=== PATIENT | female | born 1960 | race Caucasian/White ===

== ENCOUNTER → 2020-01-31 | Outpatient (CLI) | payer OTHER ==
[~2020-01-31] VITALS: Ht 162.6 cm; Wt 92.3 kg
[~2020-01-31] MED LIST: LIDOCAINE 1% INJ 20 ML 20 ML VIAL INJ ONE; LIDOCAINE 1% INJ 20 ML 20 ML VIAL ONE
--- NOTE | 2020-01-31 12:29 | Diagnostic Imaging Report ---
INDICATION: Thyroid nodules. Patient presents for biopsy. TECHNIQUE: The patient was brought to the procedure room and placed on the table in the supine position. Ultrasound imaging over the neck was performed to evaluate for an appropriate entry site. The neck was then prepped and draped in the usual sterile fashion. A small amount of 1% lidocaine was utilized for local anesthesia. A total of four passes was made into the dominant solid mass in the left lobe of the thyroid utilizing 25-gauge needles and fine-needle aspiration technique. A single pass was made with a Rotex needle and a Rotex biopsy was performed. Next, a total of 4 passes was made into the dominant solid nodule near the junction of the right lobe of the thyroid and isthmus utilizing 25-gauge needles and fine-needle aspiration technique. A solitary pass was made through the nodule utilizing a Rotex needle and a Rotex biopsy was performed. The patient tolerated the procedure well and left the Department in stable condition. IMPRESSION: Successful ultrasound-guided fine-needle aspiration and Rotex biopsies of the left lobe thyroid nodule as well as isthmus dominant nodule. Dictated by: Dictated on workstation # [id number]
== END ==
LOC: RAD 09:00
PROVIDERS: ATTEND Nurse Practitioner Family
DX: E04.1 Nontoxic single thyroid nodule (principal)

== ENCOUNTER 2021-03-15 05:36 | Outpatient (CLI) | payer OTHER ==
[~2021-03-15] VITALS: Ht 162.6 cm; Wt 110.0 kg
[2021-03-15] MEDS ORDERED: PAMI30VI8 SQ (15:56)
[2021-03-15] MEDS ORDERED: ATOR80TA76 PO (15:56)
[2021-03-15] MEDS ORDERED: LISI20TA26 PO (15:56)
[2021-03-15] MEDS ORDERED: GABA300S2 PO (15:56)
[2021-03-15] MEDS ORDERED: NAPR-1071 PO (15:56)
[2021-03-15] MEDS ORDERED: AMIT50TA3 PO (15:56)
[2021-03-15] MEDS ORDERED: LEVO-130 PO (15:56)
[2021-03-15] MEDS ORDERED: VENL150C PO (15:56)
[2021-03-15] MEDS ORDERED: HYOS-20 PO (15:56)
[2021-03-15] MEDS ORDERED: OMEP40CA6 PO (15:56)
== END 2021-03-15 16:41 | disposition home or self-care (01) ==
LOC: PREOP 05:36
PROVIDERS: ATTEND Otolaryngology Otolaryngology/Facial Plastic Surgery
DX: Z01.818 Encounter for other preprocedural examination (principal)

== ENCOUNTER 2021-03-22 07:57 | Day surgery (SDC) | payer OTHER ==
[~2021-03-22] VITALS: Ht 162.6 cm; Wt 110.0 kg
[2021-03-22] VITALS (11 sets, daily range): BP systolic 93–160; BP diastolic 58–104
[~2021-03-22 07:57] MED LIST changes: +AMIT50TA3 PO; +ATOR80TA76 PO; +GABA300S2 PO; +HYOS-20 PO; +LEVO-130 PO; -LIDOCAINE 1% INJ 20 ML 20 ML VIAL INJ ONE; -LIDOCAINE 1% INJ 20 ML 20 ML VIAL ONE; +LISI20TA26 PO; +NAPR-1071 PO; +OMEP40CA6 PO; +PAMI30VI8 SQ; +VENL150C PO
--- OUTSIDE RECORDS SUMMARY | 2021-03-22 08:00 | XMS REPORT ---
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 02/07/2015 8:30 AM Fracture 2nd Metatarsal left foot 01/30/2015 9:00 AM Medications Active Name Start Date Estimated Completion Date SIG Co mments pioglitazone 30 mg oral tablet 11/30/2014 t edison 1 tablet (30 mg) by oral route once daily lisinopril-hydrochlorothiazide 20-12.5 mg oral tablet 07/07/2015 take 1 tablet by oral route once daily amitriptyline 25 mg oral tablet take 1 tablet (25 mg) by oral route once daily at bedtime enalapril maleate 10 mg oral tablet take 1 tablet (10 mg) by oral route once daily atorvastatin 80 mg oral tablet 11/02/2015 TAKE ONE T ABLET BY MOUTH ONCE DAILY lisinopril 20 mg oral tablet take 1 table t (20 mg) by oral route once daily hyoscyamine sulfate 0.125 mg oral tablet 01/29/2019 TAKE 1 TABLET BY MOUTH EVERY 6 HOURS methimazole 10 mg oral tablet take 2 tabl ets by oral route daily Synjardy XR 25-1,000 mg oral tablet, IR - ER, biphasic 24hr take 1 tablet by oral route once daily in the morning with a meal venlafaxine 150 mg oral capsule,extended release 24hr take 1 capsule (150 mg) by oral route once daily propranolol 10 mg oral tablet ta ke 1 tablet by oral route 3 times a day as needed levothyroxine 100 mcg oral tablet take 1 tablet (100 mcg) by oral route once daily Tums 300 mg (750 mg) oral tablet,chewable chew 3 tablets by oral route 2 times a day Humalog U-100 Insulin 100 unit/mL subcutaneous cartridge inject by subcutaneous route per prescriber's instructions. Insulin dosing requires individualization. for 1 day amitriptyline oral tablet 50 mg 10/16/2020 10/11/2021 take 1 tablet (50 mg) by oral route once daily at bedtime for 30 days Euthyrox 100 mcg oral tablet 02/26/2021 02/21/2022 Felicita e 1 tablet by mouth once daily Name Start Date Expiration Date SIG Comments Zocor 40 mg oral tablet 12/19/2009 03/19/2010 take 1 t ablet (40 mg) by oral route once daily in the evening for 30 days metformin 500 mg oral tablet 12/20/2009 06/18/2010 felicita e 1 tablet (500 mg) by oral route 2 times a day for 30 days Cipro 500 mg oral tablet 01/02/2015 01/09/2015 take 1 tablet (500 mg) by oral route every 12 hours for 7 days Jardiance 10 mg oral tablet 01/18/2015 07/17/2015 take 1 tablet (10 mg) by oral route once daily in the morning for 30 days Lipitor 40 mg oral tablet 02/20/2015 take 1 tablet (40 mg) by oral route once daily at bedtime for 30 days amitriptyline 25 mg oral tablet take 1 tablet (25 mg) by oral route once daily at bedtime omeprazole 40 mg oral capsule,delayed release(DR/EC) take 1 capsule (40 mg) by oral route once daily atorvastatin 40 mg oral tablet t edison 1 tablet (40 mg) by oral route once daily diphenoxylate-atropine 2.5-0.025 mg oral tablet 03/27/2015 take 2 tablets (5 mg) by oral route 3 times per day as needed Zofran (as hydrochloride) 8 mg oral tablet 03/27/2015 take 1 tablet (8 mg) by oral route every 8 hours Promethazine Topical 12.5 mg/0.1 ml 03/27/2015 Apply 0.1 ml to wrist and rub in every 4 hours as needed for nausea Dexilant 60 mg oral capsule,biphase delayed releas take 1 capsule (60 mg) by oral route once daily Allergy 25 mg oral tablet equate allergy. 1 tablet daily Ceftin 500 mg oral tablet take 1 tablet (500 mg) by oral route every 12 hours [place] 10-325 mg oral tablet take 1 tablet by oral route every 6 hours as needed for pain Transderm-Scop 1.5 mg (1 mg over 3 days) transdermal patch 3 day apply 1 patch by transdermal route to the hairless area behind 1 ear at least 4 hr before effect is required; reapply every 3 days as needed Lipitor 80 mg oral tablet 07/11/2015 take 1 tablet (80 mg) by oral route once daily omeprazole 40 mg oral capsule,delayed release(DR/EC) take 1 capsule (40 mg) by oral route once daily before a meal lisinopril-hydrochlorothiazide 20-12.5 mg oral tablet 09/26/2015 take 1 tablet by oral route once daily Zithromax Z-Ross 250 mg oral tablet 12/25/2015 12/30/2015 take 2 tablets (500 mg) by oral route once daily for 1 day then 1 tablet (250 mg) by oral route once daily for 4 days Zyrtec-D 5-120 mg oral tablet extended release 12 hr 12/25/2015 take 1 tablet by oral route every 12 hours Humalog 100 unit/mL subcutaneous solution 12/25/2015 inject by subcutaneous route 6 units before each meal Levemir 100 unit/mL subcutaneous solution 12/25/2015 inject by subcutaneous route 25 units at bedtime enalapril maleate 10 mg oral tablet 01/30/2016 TAKE ONE TABLET BY MOUTH ONCE DAILY pioglitazone 30 mg oral tablet 01/30/2016 TAKE ONE T ABLET BY MOUTH ONCE DAILY Augmentin 875-125 mg oral tablet take 1 t ablet by oral route every 12 hours Percocet 10-325 mg oral tablet t edison 1 tablet by oral route every 4 hours as needed for pain Dyazide 37.5-25 mg oral capsule take 1 capsule by oral route once daily as needed Invokana 100 mg oral tablet take 1 tablet (100 mg) by oral route once daily before the first meal of the day Dominik Duksear 300 unit/mL (1.5 mL) subcutaneous insulin pen inject by subcutaneous route per prescriber's instructions. Insulin dosing requires individualization. glimepiride 2 mg oral tablet take 1 table t (2 mg) by oral route once daily Bydureon 2 mg subcutaneous suspension,extended rel recon inject 2 mg once by subcutaneous route every 7 days metoclopramide HCl 10 mg oral tablet take 1 tablet (10 mg) by oral route 4 times per day 30 minutes before meals and at bedtime escitalopram oxalate 20 mg oral tablet take 1 tablet (20 mg) by oral route once daily diclofenac sodium 1 % topical gel 07/08/2017 10/06/2017 apply 2 gram to the affected area(s) by topical route 4 times per day for 30 days glimepiride 2 mg oral tablet take 1 table t (2 mg) by oral route twice daily Levsin 0.125 mg oral tablet take 1 tablet (0.125 mg) by oral route 4 times per day tramadol 50 mg oral tablet take 1 tablet (50 mg) by oral route every 4-6 hours as needed ondansetron 8 mg oral tablet,disintegrating dissolve 1 tablet by oral route every 8 hours as needed naproxen 500 mg oral tablet 02/28/2020 06/27/2020 Take 1 tablet by mouth twice daily Neurontin oral capsule 300 mg 08/29/2020 09/28/2020 ta ke 1 capsule (300 mg) by oral route 3 times per day for 30 days tramadol oral tablet 50 mg 08/29/2020 11/27/2020 take 1 tablet (50 mg) by oral route every 6 hours as needed for 90 days Voltaren topical gel 1 % 08/29/2020 09/28/2020 Apply to affecte d area BID. Lidoderm topical adhesive patch,medicated 5 % 08/29/202009/28/2020 apply 1 patch by transdermal route once daily (May wear up to 12hours.) for 30 days naproxen oral tablet 500 mg 08/29/2020 09/28/2020 take 1 tablet (500 mg) by oral route 2 times per day with food for 30 days Discontinued Name Start Date Discontinued Date SIG Comments enalapril maleate 10 mg oral tablet 01/18/2015 07/07/2015 take 1 tablet (10 mg) by oral route once daily for 90 days Fish Oil oral 05/21/2017 multivitamin oral tablet 05/21/2017 Vesicare 10 mg oral tablet 02/14/2015 03/27/2015 take 1 tablet (10 mg) by oral route once daily for 30 days metoclopramide HCl 10 mg oral tablet 05/21/2017 take 1 tablet (10 mg) by oral route 4 times per day 30 minutes before meals and at bedtime triamterene-hydrochlorothiazid 37.5-25 mg oral capsule 07/08/2017 take 1 capsule by oral route daily as needed Zyrtec 10 mg oral tablet 05/21/2017 take 1 tablet (10 mg) by oral route once daily Suprep Bowel Prep Kit 17.5-3.13-1.6 gram oral recon soln 05/07/19 18 05/21/2017 take as directed Levemir FlexTouch U-100 Insuln 100 unit/mL (3 mL) subcutaneo us insulin pen 08/29/2020 34 units BID Novolog U-100 Insulin aspart 100 unit/mL subcutaneous solution 08/29/2020 inject by subcutaneous route per prescriber's instructions. Insulin dosing requires individualization. gabapentin 300 mg capsule 08/29/2020 1 tab q HS Problem List Description Status Onset Hyperlipidemia Active Seasonal Allergies Active GERD (gastroesophageal reflux disease) Active 1 04/09/2014 Diverticulitis large intestine Active 6 Wound dehiscence Active 05/15/2015 Hypertension Active 07/07/2015 Left sided abdominal pain Active 04/23/2017 Nausea Active 05/07/2017 Constipation Active 05/07/2017 Diabetes type 2, uncontrolled Active 01/08/2018 Gas bloat syndrome Active 01/08/2018 DJD (degenerative joint disease) Active 018 Lower abdominal pain Active 01/21/2018 Fibromyalgia Active 01/08/2018 Vital Signs Date Time BP-Sys(mm[Hg] BP-Britni(mm[Hg]) HR(bpm) RR(rpm) Temp WT HT HC BMI BSA BMI Percentile O2 Sat(%) 08/29/2020 4:14:00 PM 131 mm[Hg] 85 mm[Hg] 98 {beats}/min 97.2 F 232 lbs 64 in 39.8223 kg/m2 2.1799 m2 02/15/2020 9:21:00 AM 139 mm[Hg] 84 mm[Hg] 84 {beats}/min 20 rpm 96.6 F 203 lbs 64 in 34.84 kg/m2 2.04 m2 02/17/2018 8:42:00 AM 131 mm[Hg] 73 mm[Hg] 83 {beats}/min 20 rpm 96.9 F 224 lbs 64 in 38.4491 kg/m2 2.142 m2 01/21/2018 8:54:00 AM 141 mm[Hg] 75 mm[Hg] 81 {beats}/min 20 rpm 97.2 F 224 lbs 64 in 38.45 kg/m2 2.14 m2 01/07/2018 11:17:00 AM 118 mm[Hg] 71 mm[Hg] 84 {beats}/min 20 rpm 97.4 F 218 lbs 64 in 37.4192 kg/m2 2.1131 m2 08/07/2017 7:58:00 AM 118 mm[Hg] 68 mm[Hg] 87 {beats}/min 97.7 F 222.125 lbs 64 in 38.13 kg/m2 2.13 m2 96 % 07/08/2017 9:44:00 AM 120 mm[Hg] 60 mm[Hg] 80 {beats}/min 98.7 F 22 0.062 lbs 97 % 06/09/2017 9:52:00 AM 130 mm[Hg] 70 mm[Hg] 80 {beats}/min 96.9 F 21 5 lbs 64 in 36.90 kg/m2 2.10 m2 96 % 05/21/2017 7:56:00 AM 118 mm[Hg] 82 mm[Hg] 82 {beats}/min 97.6 F 214.125 lbs 64 in 36.7541 kg/m2 2.0942 m2 97 % 05/07/2017 8:54:00 AM 118 mm[Hg] 82 mm[Hg] 89 {beats}/min 20 rpm 96.9 F 209.5 lbs 64 in 35.96 kg/m2 2.07 m2 04/23/2017 9:04:00 AM 136 mm[Hg] 80 mm[Hg] 86 {beats}/min 20 rpm 96.9 F 207 lbs 64 in 35.5311 kg/m2 2.0591 m2 10/15/2016 8:46:00 AM 141 mm[Hg] 84 mm[Hg] 84 {beats}/min 20 rpm 19 1 lbs 64 in 32.78 kg/m2 1.98 m2 09/03/2016 9:03:00 AM 131 mm[Hg] 65 mm[Hg] 81 {beats}/min 20 rpm 97.5 F 186 lbs 64 in 31.9265 kg/m2 1.9518 m2 08/28/2016 10:01:00 AM 136 mm[Hg] 80 mm[Hg] 82 {beats}/min 18 rpm 97.6 F 183 lbs 64 in 31.41 kg/m2 1.94 m2 12/25/2015 9:32:00 AM 132 mm[Hg] 74 mm[Hg] 82 {beats}/min 18 rpm 98.1 F 201 lbs 64 in 34.5012 kg/m2 2.029 m2 98 % 08/15/2015 9:05:00 AM 150 mm[Hg] 96 mm[Hg] 81 {beats}/min 16 rpm 96.9 F 201 lbs 64 in 34.50 kg/m2 2.03 m2 97 % 07/07/2015 8:59:00 AM 158 mm[Hg] 108 mm[Hg] 73 {beats}/min 18 rpm 98.2 F 197 lbs 64 in 33.8146 kg/m2 2.0087 m2 97 % 05/26/2015 8:53:00 AM 148 mm[Hg] 87 mm[Hg] 82 {beats}/min 18 rpm 97.2 F 200 lbs 64 in 34.33 kg/m2 2.02 m2 05/25/2015 4:44:00 PM 118 mm[Hg] 73 mm[Hg] 75 {beats}/min 20 rpm 97.4 F 201 lbs 64 in 34.5012 kg/m2 2.029 m2 05/24/2015 8:44:00 AM 118 mm[Hg] 73 mm[Hg] 75 {beats}/min 20 rpm 97.5 F 199 lbs 64 in 34.16 kg/m2 2.02 m2 05/23/2015 9:07:00 AM 137 mm[Hg] 81 mm[Hg] 81 {beats}/min 16 rpm 96.8 F 200 lbs 64 in 34.3296 kg/m2 2.024 m2 05/22/2015 1:53:00 PM 132 mm[Hg] 85 mm[Hg] 91 {beats}/min 20 rpm 96.6 F 200.5 lbs 05/17/2015 10:16:00 AM 129 mm[Hg] 67 mm[Hg] 79 {beats}/min 20 rpm 97.6 F 202 lbs 64 in 34.6729 kg/m2 2.0341 m2 05/16/2015 11:59:00 AM 118 mm[Hg] 69 mm[Hg] 82 {beats}/min 18 rpm 97 F 202 lbs 64 in 34.67 kg/m2 2.03 m2 05/15/2015 3:08:00 PM 129 mm[Hg] 69 mm[Hg] 78 {beats}/min 20 rpm 97 F 202 lbs 64 in 34.6729 kg/m2 2.0341 m2 05/12/2015 11:15:00 AM 123 mm[Hg] 62 mm[Hg] 77 {beats}/min 20 rpm 97.4 F 205 lbs 05/11/2015 2:12:00 PM 121 mm[Hg] 72 mm[Hg] 89 {beats}/min 20 rpm 96.8 F 202 lbs 05/10/2015 8:45:00 AM 122 mm[Hg] 75 mm[Hg] 76 {beats}/min 16 rpm 97.4 F 205.5 lbs 64 in 35.2736 kg/m2 2.0516 m2 05/09/2015 10:15:00 AM 110 mm[Hg] 74 mm[Hg] 88 {beats}/min 20 rpm 97.7 F 203 lbs 64 in 34.84 kg/m2 2.04 m2 04/19/2015 8:43:00 AM 127 mm[Hg] 76 mm[Hg] 78 {beats}/min 20 rpm 97 F 219 lbs 64 in 37.5909 kg/m2 2.1179 m2 03/31/2015 10:32:00 AM 103 mm[Hg] 74 mm[Hg] 81 {beats}/min 16 rpm 97.4 F 217 lbs 64 in 37.25 kg/m2 2.11 m2 03/27/2015 2:24:00 PM 136 mm[Hg] 88 mm[Hg] 92 {beats}/min 22 rpm 98.2 F 213 lbs 64 in 36.561 kg/m2 2.0887 m2 98 % 02/07/2015 9:20:00 AM 125 mm[Hg] 85 mm[Hg] 70 {beats}/min 20 rpm 96.8 F 210 lbs 64 in 36.05 kg/m2 2.07 m2 01/26/2015 3:53:00 PM 132 mm[Hg] 76 mm[Hg] 85 {beats}/min 20 rpm 98.5 F 218 lbs 63.5 in 38.0108 kg/m2 2.1048 m2 99 % 01/13/2015 1:44:00 PM 75 {beats}/min 20 rpm 98.2 F 213.8 lbs 98 % 01/02/2015 9:52:00 AM 109 mm[Hg] 71 mm[Hg] 90 {beats}/min 20 rpm 98.1 F 207 lbs 97 % 11/29/2014 1:35:00 PM 138 mm[Hg] 88 mm[Hg] 104 {beats}/min 20 rpm 98 F 225 lbs 63.5 in 39.2314 kg/m2 2.1383 m2 98 % 03/09/2010 1:10:00 PM 176 mm[Hg] 98 mm[Hg] 80 {beats}/min 20 rpm 98.5 F 226.125 lbs 09/21/2009 9:41:00 AM 136 mm[Hg] 90 mm[Hg] 68 {beats}/min 16 rpm 97.6 F 220.25 lbs 63.5 in 38.4031 kg/m2 2.1157 m2 Social History Name Description Comments Tobacco Former smoker 12 years total denies alcohol use Unemployed Child History of Procedures Date Ordered Description Order Status 01/02/2015 10:14 AM URINALYSIS AUTO W/O SCOPE Reviewed 01/02/2015 12:00 AM URINE CULTURE/COLONY COUNT Reviewed 01/13/2015 12:00 AM COMPLETE CBC W/AUTO DIFF WBC Reviewed 01/13/2015 12:00 AM COMPREHEN METABOLIC PANEL Reviewed 01/13/2015 12:00 AM URNLS DIP STICK/TABLET RGNT AUTO W/O VIVIENNE ROSCOPY Reviewed 01/13/2015 12:[address] ABD & PELVIS W/O CONTRAST Reviewed 01/26/2015 12:00 AM General Surgery Consultation Reviewed 01/26/2015 12:00 AM Orthopedic Consultation Reviewed 02/07/2015 12:00 AM DIAGNOSTIC COLONOSCOPY Reviewed 03/31/2015 12:00 AM COMPLETE CBC W/AUTO DIFF WBC Reviewed 03/31/2015 12:00 AM COMPREHEN METABOLIC PANEL Reviewed 03/31/2015 12:00 AM MICROSCOPIC EXAM OF URINE Reviewed 03/27/2015 12:00 AM General Surgery Consultation Reviewed 04/19/2015 12:00 AM ELECTROCARDIOGRAM COMPLETE Reviewed 04/19/2015 12:00 AM CHEST X-RAY 2VW FRONTAL&LATL Reviewed 07/07/2015 12:00 AM METABOLIC PANEL TOTAL CA Reviewed 07/07/2015 12:00 AM LIPID PANEL Reviewed 07/07/2015 12:00 AM GLYCOSYLATED HEMOGLOBIN TEST Reviewed 07/07/2015 12:00 AM ALBUMIN URINE MICROALBUMIN QUANTIATIVE R eviewed 07/07/2015 12:00 AM ELECTROCARDIOGRAM COMPLETE Reviewed 07/07/2015 12:00 AM ASSAY OF TROPONIN QUANT Reviewed 07/07/2015 12:00 AM ASSAY THYROID STIM HORMONE Reviewed 08/15/2015 12:00 AM ASSAY THYROID STIM HORMONE Returned 08/15/2015 12:00 AM ASSAY OF FREE THYROXINE Returned 08/15/2015 12:00 AM URNLS DIP STICK/TABLET RGNT AUTO W/O VIVIENNE ROSCOPY Returned 08/15/2015 12:00 AM THYROGLOBULIN ANTIBODY Returned 08/18/2015 12:00 AM US EXAM OF HEAD AND NECK Returned 08/18/2015 12:00 AM FREE ASSAY (FT-3) Returned 10/02/2015 12:00 AM CULTURE SCREEN ONLY Reviewed 04/23/2017 12:00 AM COMPLETE CBC W/AUTO DIFF WBC Reviewed 04/23/2017 12:00 AM COMPREHEN METABOLIC PANEL Reviewed 04/23/2017 12:00 AM GLYCOSYLATED HEMOGLOBIN TEST Reviewed 04/25/2017 12:[address] ABD & PELV W/CONTRAST Reviewed 05/21/2017 12:00 AM RADEX FOOT COMPLETE MINIMUM 3 VIEWS Retu rned 06/11/2017 12:00 AM NRV CNDJ TEST 13/> STUDIES Reviewed 06/11/2017 12:00 AM MUSC TEST DONE W/N TEST COMP Reviewed 01/08/2018 12:00 AM GLYCOSYLATED HEMOGLOBIN TEST Reviewed 09/21/2009 12:00 AM COMPLETE CBC W/AUTO DIFF WBC Reviewed 09/21/2009 12:00 AM COMPREHEN METABOLIC PANEL Reviewed 09/21/2009 12:00 AM GLYCOSYLATED HEMOGLOBIN TEST Reviewed 09/21/2009 12:00 AM LIPID PANEL Reviewed 09/21/2009 12:00 AM MICROALBUMIN SEMIQUANT Reviewed 09/21/2009 12:00 AM URINALYSIS NONAUTO W/SCOPE Reviewed 09/21/2009 12:00 AM LIPID PANEL Reviewed 12/18/2009 12:00 AM LIPID PANEL Reviewed 02/15/2020 12:00 AM COVID-19 Testing Reviewed 02/15/2020 12:00 AM COMPLETE CBC W/AUTO DIFF WBC Reviewed 02/15/2020 12:00 AM COMPREHEN METABOLIC PANEL Reviewed 02/15/2020 12:00 AM ELECTROCARDIOGRAM TRACING Reviewed 02/15/2020 12:00 AM CHEST X-RAY 2VW FRONTAL&LATL Reviewed 02/15/2020 12:00 AM GLYCOSYLATED HEMOGLOBIN TEST Reviewed 02/25/2020 12:00 AM ASSAY OF TOTAL THYROXINE Reviewed 02/25/2020 12:00 AM ASSAY THYROID STIM HORMONE Reviewed 02/25/2020 12:00 AM ASSAY OF CALCIUM Reviewed 03/08/2020 12:00 AM ASSAY THYROID STIM HORMONE Reviewed 03/08/2020 12:00 AM ASSAY OF TOTAL THYROXINE Reviewed 03/08/2020 12:00 AM ASSAY OF CALCIUM Reviewed 02/06/2021 12:00 AM ASSAY THYROID STIM HORMONE Reviewed 02/06/2021 12:00 AM ASSAY OF FREE THYROXINE Reviewed 12/19/2009 12:00 AM GLYCOSYLATED HEMOGLOBIN TEST Reviewed 11/29/2014 12:00 AM ASSAY OF C-PEPTIDE Reviewed Results Summary Date and Description Results 09/21/2009 10:35 AM TRIGLYCERIDES 349.0 mg/dLCHO LESTEROL 284.0 mg/dLHDL 42.0 mg/dLTOT CHOL/HDL 6.8 LDL (CALC) 172.0 mg/dLGLYCOHEMOGLOBIN A1C 6.80 %COLOR YELLOW APPEARANCE CLEAR SPEC GRAV 1.025 pH 6.5 PROTEIN NEGATIVE GLUCOSE NEGATIVE KETONE NEGATIVE BILIRUBIN NEGATIVE BLOOD NEGATIVE NITRITE NEGATIVE LEUK SCREEN NEGATIVE WBC/HPF NEGATIVE RBC/HPF RARE CASTS/LPF NEGATIVE CRYSTALS NEGATIVE MUCOUS THRDS NEGATIVE BACTERIA NEGATIVE EPITH CELLS FEW SQUAMOUS TRICHOMONAS NEGATIVE YEAST NEGATIVE CULT SET UP? NO CREAT UR 75.30 mg/dLMICROALBUMIN UR 9.0 ug/mLALB:CREAT RATIO 12 WBC 9.4 RBC 4.80 HGB 14.60 g/dLHCT 42.80 %MCV 89.0 fLMCH 30.40 pgMCHC 34.10 g/dLRDW SD 43 RDW CV 13.30 %MPV 10.0 fLPLT 257 NRBC# 0.00 NRBC% 0.0 %NEUT 59.60 %%LYMP 28.20 %%MONO 6.90 %%EOS 4.80 %%BASO 0.50 %#NEUT 5.61 #LYMP 2.66 #MONO 0.65 #EOS 0.45 #BASO 0.05 MANUAL DIFF NOT IND GLUCOSE 104.0 mg/dLSODIUM 136.0 mmol/LPOTASSIUM 4.70 mmol/LCHLORIDE 100.0 mmol/LCO2 25.0 mmol/LBUN 18.0 mg/dLCREATININE 0.70 mg/dLSGOT/AST 26.0 IU/LSGPT/ALT 32.0 IU/LALK PHOS 96.0 IU/LTOTAL PROTEIN 7.50 g/dLALBUMIN 4.50 g/dLTOTAL BILI 0.60 mg/dLCALCIUM 10.20 mg/dLAGE 49 GFR NonAA 90 GFR AA 109 eGFR >60 mL/min/1.73 m2eGFR AA* >60 12/19/2009 10:12 AM TRIGLYCERIDES 244.0 mg/dLCHO LESTEROL 206.0 mg/dLHDL 44.0 mg/dLTOT CHOL/HDL 4.7 LDL (CALC) 113.0 mg/dL 12/20/2009 10:28 AM GLYCOHEMOGLOBIN A1C 6.50 % 12/13/2014 8:48 AM C-Peptide, Serum 2.8 01/02/2015 10:14 AM Clarity Ur clear Color Ur lt yellow Glucose Ur-sCnc >= 1000 Bilirub Ur Ql Strip negative Ketones Ur Ql Strip negative Sp Gr Ur Qn 1.010 Hgb Ur Ql Strip negative pH Ur-LsCnc 6 Prot Ur Ql Strip negative Urobilinogen Ur- mCnc 0.2 Nitrite Ur Ql Strip negative WBC Est Ur Ql Strip negative 01/13/2015 2:35 PM GLUCOSE 158.0 mg/dLSODIUM 14 0.0 mmol/LPOTASSIUM 4.20 mmol/LCHLORIDE 105.0 mmol/LCO2 28.0 mmol/LBUN 18.0 mg/dLCREATININE 0.80 mg/dLSGOT/AST 16.0 IU/LSGPT/ALT 23.0 IU/LALK PHOS 90.0 IU/LTOTAL PROTEIN 6.80 g/dLALBUMIN 4.10 g/dLTOTAL BILI 0.70 mg/dLCALCIUM 9.90 mg/dLAGE 54 GFR NonAA 75 GFR AA 91 eGFR >60 mL/min/1.73 m2eGFR AA* >60 WBC 10.1 RBC 4.51 HGB 13.60 g/dLHCT 41.10 %MCV 91.0 fLMCH 30.20 pgMCHC 33.10 g/dLRDW SD 45 RDW CV 13.50 %MPV 9.90 fLPLT 279 NRBC# 0.00 NRBC% 0.0 %NEUT 59.50 %%LYMP 30.0 %%MONO 5.40 %%EOS 4.80 %%BASO 0.30 %#NEUT 6.01 #LYMP 3.03 #MONO 0.55 #EOS 0.49 #BASO 0.03 MANUAL DIFF NOT IND COLOR YELLOW APPEARANCE CLEAR SPEC GRAV 1.015 pH 7.0 PROTEIN NEGAT LAZARA GLUCOSE NEGATIVE mg/dLKETONE NEGATIVE BILIRUBIN NEGATIVE BLOOD NEGATIVE NITRITE NEGATIVE LEUK SCREEN SMALL MICRO INDICATED? SEE BELOW WBC/HPF 0-5 RBC/HPF NEGATIVE CASTS/LPF NEGATIVE /LPFCRYSTALS NEGATIVE MUCOUS THRDS FEW BACTERIA FEW EPITH CELLS FEW SQUAMOUS /HPFTRICHOMONAS NEGATIVE YEAST NEGATIVE CULT SET UP? YES 03/31/2015 10:56 AM COLOR YELLOW APPEARANCE MARILUZ R SPEC GRAV 1.015 pH 7.5 PROTEIN NEGATIVE GLUCOSE >=1000 mg/dLKETONE NEGATIVE BILIRUBIN NEGATIVE BLOOD NEGATIVE NITRITE NEGATIVE LEUK SCREEN TRACE WBC/HPF 0-5 RBC/HPF NEGATIVE CASTS/LPF NEGATIVE /LPFCRYSTALS NEGATIVE MUCOUS THRDS NEGATIVE BACTERIA FEW EPITH CELLS 1+ RENAL /HPFTRICHOMONAS NEGATIVE YEAST NEGATIVE WBC 10.6 RBC 5.10 HGB 15.20 g/dLHCT 45.10 %MCV 88.0 fLMCH 29.80 pgMCHC 33.70 g/dLRDW SD 43 RDW CV 13.40 %MPV 9.90 fLPLT 247 NRBC# 0.00 NRBC% 0.0 %NEUT 57.90 %%LYMP 30.30 %%MONO 6.60 %%EOS 4.80 %%BASO 0.40 %#NEUT 6.13 #LYMP 3.21 #MONO 0.70 #EOS 0.51 #BASO 0.04 MANUAL DIFF NOT IND GLUCOSE 120.0 mg/dLSODIUM 140.0 mmol/LPOTASSIUM 3.90 mmol/LCHLORIDE 103.0 mmol/LCO2 27.0 mmol/LBUN 18.0 mg/dLCREATININE 0.70 mg/dLSGOT/AST 17.0 IU/LSGPT/ALT 22.0 IU/LALK PHOS 100.0 IU/LTOTAL PROTEIN 7.50 g/dLALBUMIN 4.50 g/dLTOTAL BILI 0.90 mg/dLCALCIUM 10.0 mg/dLAGE 55 GFR NonAA 88 GFR AA 107 eGFR >60 mL/min/1.73 m2eGFR AA* >60 07/08/2015 9:05 AM GLUCOSE 144.0 mg/dLSODIUM 14 1.0 mmol/LPOTASSIUM 3.70 mmol/LCHLORIDE 103.0 mmol/LCO2 27.0 mmol/LBUN 18.0 mg/dLCREATININE 0.90 mg/dLCALCIUM 9.90 mg/dLAGE 55 GFR NonAA 65 GFR AA 79 eGFR >60 mL/min/1.73 m2eGFR AA* >60 TRIGLYCERIDES 288.0 mg/dLCHOLESTEROL 184.0 mg/dLHDL 36.0 mg/dLTOT CHOL/HDL 5.1 LDL (CALC) 90.0 mg/dLTROPONIN-I AD <0.04 ng/mLTSH 0.110 uIU/mLHemoglobin A1c 6.0 %Estim. Avg Glu (eAG) 126 07/08/2015 9:08 AM MICROALBUMIN UR 22.0 ug/mL 10/06/2015 8:59 AM C DIFFICILE NAAT NEGATIVE 04/23/2017 9:20 AM HGB A1C 9.20 %Est Avg Glucos e 217.3 mg/dLWBC 10.9 RBC 4.75 HGB 14.0 g/dLHCT 42.70 %MCV 90.0 fLMCH 29.50 pgMCHC 32.80 g/dLRDW SD 41 RDW CV 12.50 %MPV 9.50 fLPLT 301 NRBC# 0.00 NRBC% 0.0 %NEUT 64.20 %%LYMP 24.80 %%MONO 6.50 %%EOS 3.50 %%BASO 0.60 %#NEUT 6.97 #LYMP 2.69 #MONO 0.71 #EOS 0.38 #BASO 0.06 MANUAL DIFF NOT IND GLUCOSE 234.0 mg/dLSODIUM 137.0 mmol/LPOTASSIUM 4.0 mmol/LCHLORIDE 104.0 mmol/LCO2 24.0 mmol/LBUN 26.0 mg/dLCREATININE 0.70 mg/dLSGOT/AST 17.0 IU/LSGPT/ALT 25.0 IU/LALK PHOS 141.0 IU/LTOTAL PROTEIN 7.50 g/dLALBUMIN 4.40 g/dLTOTAL BILI 0.80 mg/dLCALCIUM 10.60 mg/dLAGE 57 GFR NonAA 87 GFR AA 105 eGFR >60 mL/min/1.73 m2eGFR AA* >60 01/21/2018 9:25 AM HGB A1C 8.70 %Est Avg Glucos e 203.0 02/15/2020 9:51 AM WBC 11.7 RBC 5.46 HGB 16.20 g/dLHCT 49.40 %MCV 91.0 fLMCH 29.70 pgMCHC 32.80 g/dLRDW SD 41 %RDW CV 12.60 %MPV 9.90 fLPLT 316 x10E3/uLNRBC# 0.00 NRBC% 0.0 %NEUT 62.7 %LYMP 25.5 %MONO 5.7 %EOS 5.1 %BASO 0.6 #NEUT 7.32 #LYMP 2.97 #MONO 0.66 #EOS 0.59 #BASO 0.07 MANUAL DIFF NOT IND GLUCOSE 215 SODIUM 138 POTASSIUM 4.2 CHLORIDE 102.0 mmol/LCO2 23 BUN 20.0 mg/dLCREATININE 0.810 mg/dLSGOT/AST 17 SGPT/ALT 27 ALK PHOS 123 TOTAL PROTEIN 7.5 ALBUMIN 4.4 TOTAL BILI 0.8 CALCIUM 9.60 mg/dLAGE 60 GFR NonAA 73 GFR AA 88 eGFR 73 mL/min/1.73meGFR AA* >60 mL/min/1.73mHGB A1C 8.30 %Est Avg Glucose 191.5 02/23/2020 9:13 AM [id number] NOT DETECTED 03/07/2020 10:48 AM CALCIUM IONIZED 1.15 TSH 1.2 3 T4 8.6 04/17/2020 9:10 AM CALCIUM IONIZED 1.21 TSH 1.8 4 T4 7.0 02/23/2021 8:52 AM FREE T4 0.91 TSH 1.23 History Of Immunizations Not available. History of Past Illness Name Date of Onset Comments Seasonal Allergies Hyperlipidemia Hyperglycemia Sep 21 2009 9:44AM Edema Sep 21 2009 9:44AM Polydipsia (Excessive Thirst) Sep 21 2009 9:44AM Hyperlipidemia, unspecified Sep 21 2009 9:44AM Hyperlipidemia, unspecified Sep 21 2009 12:15PM Hyperlipidemia, unspecified Oct 17 2009 10:10AM Diabetes Mellitus, Type II Dec 19 2009 12:43PM GERD (gastroesophageal reflux disease) 02/07/2015 Diverticulitis large intestine 04/19/2015 Wound dehiscence 05/15/2015 Hypertension 07/07/2015 Left sided abdominal pain 04/23/2017 Nausea 05/07/2017 Constipation 05/07/2017 Diabetes type 2, uncontrolled 01/08/2018 Gas bloat syndrome 01/08/2018 DJD (degenerative joint disease) 01/08/2018 Fibromyalgia 01/08/2018 Lower abdominal pain 01/21/2018 Papillary carcinoma of thyroid Hyperlipidemia Nov 29 2014 1:37PM Hyperlipidemia Nov 29 2014 1:37PM Hyperlipidemia Nov 29 2014 1:37PM Hyperlipidemia Nov 29 2014 1:37PM Hyperlipidemia Nov 29 2014 1:37PM Hyperlipidemia Nov 29 2014 1:37PM Hyperlipidemia Nov 29 2014 1:37PM Hyperlipidemia Nov 29 2014 1:37PM Hyperlipidemia Nov 29 2014 1:37PM Hyperlipidemia Nov 29 2014 1:37PM Hyperlipidemia Nov 29 2014 1:37PM Dysuria Jan 02 2015 9:54AM Lower abdominal pain Jan 13 2015 1:45PM Pelvic pain in female Jan 13 2015 1:45PM Nausea Jan 13 2015 1:45PM Overactive bladder Jan 26 2015 3:56PM Bilateral lower abdominal pain Jan 26 2015 3:56PM Closed nondisplaced fracture of second m etatarsal bone of left foot, with routine healing, subsequent encounter Jan 26 2015 3:56PM Abdominal Pain Feb 07 2015 9:28AM Dyspepsia Feb 07 2015 9:28AM GERD (gastroesophageal reflux disease) Feb 07 2015 9:28AM Diverticulosis Feb 07 2015 9:28AM Abdominal pain Mar 31 2015 10:35AM Urination pain Mar 31 2015 10:35AM Groin pain, right Mar 27 2015 2:27PM Preop examination Apr 19 2015 8:44AM Diverticulitis large intestine Apr 19 2015 8:44AM Wound dehiscence May 15 2015 3:25PM Diverticulosis Jul 07 2015 9:04AM GERD (gastroesophageal reflux disease) Jul 07 2015 9:04AM Hyperlipidemia Jul 07 2015 9:04AM Type 2 diabetes mellitus without complication Jul 07 2015 9 :04AM Hypertension Jul 07 2015 9:04AM Chest pain, unspecified type Jul 07 2015 9:04AM Diabetic polyneuropathy associated with type 2 diabete s mellitus Aug 15 2015 9:07AM Hyperthyroidism Aug 15 2015 9:07AM Dysuria Aug 15 2015 9:07AM Thyroid nodule Aug 18 2015 8:49AM Clostridium difficile enterocolitis Oct 02 2015 9:09AM Clostridium difficile enterocolitis Nov 06 2015 9:58AM Diabetes Mellitus, Type II Dec 25 2015 9:35AM Acute upper respiratory infection Dec 25 2015 9:35AM Left sided abdominal pain Apr 23 2017 8:53AM Diabetes mellitus Apr 23 2017 8:53AM Left sided abdominal pain Apr 25 2017 8:13AM Abdominal pain b 2017 8:54AM Nausea b 2017 8:54AM Dyspepsia May 07 2017 8:54AM Constipation b 2017 8:54AM Fibromyalgia muscle pain May 12 2017 10:32AM Mechanical low back pain May 21 2017 8:08AM Trochanteric bursitis of right hip May 21 2017 8:08AM Pain in right foot May 21 2017 8:08AM Other chronic pain May 21 2017 8:08AM Hand numbness May 21 2017 8:08AM Lower extremity numbness May 21 2017 8:08AM Achilles tendinitis, right leg May 21 2017 8:08AM Peroneal nerve lesion, right Jun 09 2017 10:02AM Peroneal nerve lesion, left Jun 09 2017 10:02AM Mechanical low back pain Jul 08 2017 9:48AM Trochanteric bursitis of right hip Jul 08 2017 9:48AM Pain in right foot Jul 08 2017 9:48AM Other chronic pain Jul 08 2017 9:48AM Hand numbness Jul 08 2017 9:48AM Lower extremity numbness Jul 08 2017 9:48AM Achilles tendinitis, right leg Jul 08 2017 9:48AM Hip flexor tendon tightness, left Jul 08 2017 9:48AM Mechanical low back pain Aug 07 2017 8:01AM Trochanteric bursitis of right hip Aug 07 2017 8:01AM Pain in right foot Aug 07 2017 8:01AM Other chronic pain Aug 07 2017 8:01AM Hand numbness Aug 07 2017 8:01AM Lower extremity numbness Aug 07 2017 8:01AM Achilles tendinitis, right leg Aug 07 2017 8:01AM Hip flexor tendon tightness, left Aug 07 2017 8:01AM Diabetes type 2, uncontrolled Jan 07 2018 11:23AM Lower abdominal pain Jan 07 2018 11:23AM Gas bloat syndrome Jan 07 2018 11:23AM DJD (degenerative joint disease) Jan 07 2018 11:23AM Fibromyalgia Jan 07 2018 11:23AM Lower abdominal pain Jan 21 2018 9:03AM Gas bloat syndrome Jan 21 2018 9:03AM Fibromyalgia Jan 21 2018 9:03AM DJD (degenerative joint disease) Jan 21 2018 9:03AM Diabetes type 2, uncontrolled Jan 21 2018 9:03AM Fibromyalgia Feb 17 2018 8:52AM Diabetes type 2, uncontrolled Feb 17 2018 8:52AM DJD (degenerative joint disease) Feb 17 2018 8:52AM Abdominal Pain Feb 17 2018 8:52AM Preop examination Feb 15 2020 9:13AM Hyperthyroidism Feb 15 2020 9:13AM Multinodular thyroid Feb 15 2020 9:13AM Diabetes Feb 15 2020 9:13AM Dysphagia Feb 15 2020 9:13AM Family history of thyroid cancer Feb 15 2020 9:13AM Status post thyroidectomy Feb 25 2020 8:20AM Status post thyroidectomy Mar 08 2020 9:10AM Abdominal pain Aug 29 2020 4:23PM Diarrhea Aug 29 2020 4:23PM Fibromyalgia Aug 29 2020 4:23PM Hypothyroidism Feb 06 2021 1:05PM Payers Insurance Name Company Name Plan Name Plan Number Policy Number [employer] Group Number Start Date [facility] [address] [facility] [id number] N/A [id number] [address] [facility] [id number] N/A [facility] [id number] [facility] [id number] N/A History of Encounters Visit Date Visit Type Provider 08/29/2020 Office visit Crispin Torres DO 03/08/2020 Surgery Crispin Torres DO 02/24/2020 Surgery Crispin Torres DO 02/15/2020 Office visit Crispin Torres DO 02/15/2020 [facility]2018 [facility] Laura Hartley MD 09/22/2018 [facility] Laura Hartley MD 08/22/2018 [facility] Laura Hartley MD 02/17/2018 Office visit Crispin Torres DO 01/21/2018 Office visit Crispin Torres DO 01/07/2018 Office visit Crispin Torres DO 10/10/2017 Hospital Laura Hartley MD 08/07/2017 Office visit Frederick Ford DO 07/08/2017 Office visit Frederickdanie Ford DO 06/09/2017 Procedures Frederickdanie Ford DO 05/21/2017 Office visit Frederick Ford DO 05/12/2017 Surgery Crispin Torres DO 05/07/2017 Office visit Crispin Arzolauman DO 04/23/2017 Office visit Crispin Arzolauman DO 10/15/2016 Office visit Crispin Dariuszuman DO 09/03/2016 Surgery Crispin Arzolauman DO 08/28/2016 Surgery Crispin Bouman DO 08/12/2016 [facility] Laura Hartley MD 08/07/2016 [facility] Crispin Arzolauman DO 12/25/2015 Office visit Amara Campbell SSRS DEVELOPER 09/24/2015 [facility] Darnell Kaplan MD 09/21/2015 Hospital Crispin Torres DO 08/15/[address] Frandy Croft MD 07/08/2015 [facility] Laura Hartley MD 07/07/2015 Office visit Amara Campbell SSRS DEVELOPER 06/16/2015 [facility] Crispin Dariuszuman DO 06/03/2015 [facility] Crispin Dariuszuman DO 06/02/2015 [facility] Crispin Dariuszuman DO 05/31/2015 [facility] Crispin Dariuszuman DO 05/26/2015 Surgery Crispin Dariuszuman DO 05/25/2015 Surgery Crispin Dariuszuman DO 05/24/2015 Surgery Crispin Arzolauman DO 05/23/2015 Surgery Crispin Arzolauman DO 05/22/2015 Surgery Crispin Arzolauman DO 05/17/2015 Surgery Crispin Arzolauman DO 05/16/2015 Surgery Crispin Arzolauman DO 05/15/2015 Surgery Crispin Arzolauman DO 05/12/2015 Surgery Crispin Arzolauman DO 05/11/2015 Surgery Crispin Arzolauman DO 05/10/2015 Surgery Crispin Bouman DO 05/09/2015 Surgery Crispin Bouman DO 04/28/2015 [facility] Crispin Dariuszuman DO 04/27/2015 [facility] Crispin Dariuszuman DO 04/19/2015 Office visit Crispin Arzolauman DO 03/31/2015 Office visit Crispin Dariuszuman DO 03/27/2015 Office visit Geraldo Haney DO 02/13/2015 [facility] Crispin Arzolauman DO 02/07/2015 Office visit Crispin Torres DO 01/26/2015 Office visit Geraldo Haney DO 01/13/2015 Office visit Juanita MILLER RN 01/02/2015 Office visit Juanita MILLER RN 11/29/2014 Office visit Geraldo Haney DO 07/08/2014 [facility] Darnell Kaplan MD 07/06/2014 [facility] Darnell Kaplan MD 07/05/2014 [facility] Laura Hartley MD 03/28/2014 Hospital Celestino Blanc MD 09/12/2013 [facility] Laura Hartley MD 11/05/2012 [facility] Crispinyuridia Torres 03/04/2012 [facility] Laura Hatrley MD 12/25/2010 [facility] Laura Hartley MD 12/13/2010 [facility] Laura Hartley MD 03/09/2010 Voided Cecilia LEE 03/09/2010 [facility] Laura Hartley MD 01/26/2010 [facility] Laura Hartley MD 11/08/2009 Laboratory Abigail Gutierrez MD 09/21/2009 Office visit Cecilia LEE
--- OUTSIDE RECORDS SUMMARY | 2021-03-22 08:00 | XMS REPORT ---
Author Author Gisell Torres Organization [facility] Address [address] [place], [place] [id number] Care Team Providers Care Supply Chain Development Manager Name Role Phone Crispin Torres PCP Allergies and Adverse Reactions Name Reaction Notes Nubain projectile vomiting Plan of Treatment Planned Activity Comments Planned Date Planned Time Plan/Goal uncontrolled DM not available until Mar 2018 Needs screening colonoscopy and evaluation of ongoing abdomi nal pain. 02/07/2015 8:30 AM Fracture 2nd Metatarsal left foot 01/30/2015 9:00 AM TSH 02/06/2021 12:00 AM T4 FREE 02/06/2021 12:00 AM Medications Active Name Start Date Estimated [...] 30 days Euthyrox 100 mcg oral tablet 02/06/2021 02/13/2021 Felicita e 1 tablet by mouth once [...] mg) by oral route every 12 hours [place] 10-325 mg oral tablet take 1 tablet [...] before the first meal of the day Tomj SoloStar 300 unit/mL (1.5 mL) subcutaneous insulin pen [...] 12:00 AM ALBUMIN URINE MICROALBUMIN QUANTIATIVE R ronaliewed 07/07/2015 12:00 AM ELECTROCARDIOGRAM COMPLETE Reviewed 07/07/2015 [...] 03/08/2020 12:00 AM ASSAY OF CALCIUM Reviewed 12/19/2009 12:00 AM GLYCOSYLATED HEMOGLOBIN TEST [...] %Est Avg Glucose 191.5 02/23/2020 9:13 AM [id number] NOT DETECTED 03/07/2020 10:48 AM CALCIUM IONIZED 1.15 TSH 1.2 3 T4 8.6 04/17/2020 9:10 AM CALCIUM IONIZED 1.21 TSH 1.8 4 T4 7.0 History Of Immunizations Not available. History of [...] 2017 8:54AM Nausea b 2017 8:54AM Dyspepsia b 2017 8:54AM Constipation b 2017 8:54AM Fibromyalgia [...] Number [employer] Group Number Start Date [facility] [address] [facility] [id number] N/A [id number] 2009 [facility] [address] [facility] [id number] N/A [facility] [address] [facility] [id number] N/A History of Encounters Visit Date Visit Type Provider 08/29/2020 Office visit Crispin Torres DO 03/08/2020 Surgery Crispin Torres DO 02/24/2020 Surgery Crispin Torres DO 02/15/2020 Office visit Crispin Torres DO 02/15/2020 [facility] Laura Hartley MD 09/24/2018 [facility] 09/23/2018 [facility] Laura Hartley MD 09/22/2018 [facility] Laura Hartley MD 08/22/2018 [facility] Laura Hartley MD 02/17/2018 Office visit Crispin Torres DO 01/21/2018 Office visit Crispin Torres DO 01/07/2018 Office visit Crispin Torres DO 10/10/2017 [facility] Laura Hartley MD 08/07/2017 Office visit Frederickdanie Villatoroa DO 07/08/2017 Office visit Frederick Ford DO 06/09/2017 Procedures Frederick Ford DO 05/21/2017 Office visit Frederickdanie Villatoroa DO 05/12/2017 Surgery Crispin Torres DO 05/07/2017 Office visit Crispin Torres DO 04/23/2017 Office visit Crispin Torres DO 10/15/2016 Office visit Crispin Arzolauman DO 09/03/2016 Surgery Crispin Bouman DO 08/28/2016 Surgery Crispin Bouman DO 08/12/2016 Hospital Laura Hartley MD 08/07/2016 Hospital Crispin Arzolauman DO 12/25/2015 Office visit Amara Campbell OSTOMY CARE NURSE 09/24/2015 [facility] Darnell Kaplan MD 09/21/2015 Hospital Crispin Bouman DO 08/15/[address] Frandy Croft MD 07/08/2015 [facility] Laura Hartley MD 07/07/2015 Office visit Amara Campbell OSTOMY CARE NURSE 06/16/2015 [facility] Crispin Bouman DO 06/03/2015 [facility] Crispin Bouman DO 06/02/2015 [facility] Crispin Bouman DO 05/31/2015 [facility] Crispin Bouman DO 05/26/2015 Surgery Crispin Bouman DO 05/25/2015 Surgery Crispin Arzolauman DO 05/24/2015 Surgery Crispin Arzolauman DO 05/23/2015 Surgery Crispin Arzolauman DO 05/22/2015 Surgery Crispin Arzolauman DO 05/17/2015 Surgery Crispin Arzolauman DO 05/16/2015 Surgery Crispin Bouman DO 05/15/2015 Surgery Crispin Arzolauman DO 05/12/2015 Surgery Crispin Bouman DO 05/11/2015 Surgery Crispin Arzolauman DO 05/10/2015 Surgery Crispin Bouman DO 05/09/2015 Surgery Crispin Bouman DO 04/28/2015 [facility] Crispin Bouman DO 04/27/2015 [facility] Crispin Arzolauman DO 04/19/2015 Office visit Crispin Torres DO 03/31/2015 Office visit Crispin Torres DO 03/27/2015 Office visit Geraldo Haney DO 02/13/2015 [facility] Crispin Bouman DO 02/07/2015 Office visit Crispin Dariuszuman DO 01/26/2015 Office visit Geraldo Haney DO 01/13/2015 Office visit Juanita MILLER RN 01/02/2015 Office visit Juanita MILLER RN 11/29/2014 Office visit Geraldo Haney DO 07/08/2014 [facility] Darnell Kaplan MD 07/06/2014 [facility] Darnell Kaplan MD 07/05/2014 [facility] Laura Hartley MD 03/28/2014 [facility] Celestino Blanc MD 09/12/2013 [facility] Laura Hartley MD 11/05/2012 [facility] Crispin Torres 03/04/2012 [facility] Laura Hartley MD 12/25/2010 [facility] Laura Hartley MD 12/13/2010 Hospital Laura Hartley MD 03/09/2010 Voided Cecilia LEE 03/09/2010 [facility] Laura Hartley MD 01/26/2010 [facility] Laura Hartley MD 11/08/2009 Laboratory Abigail Gutierrez MD 09/21/2009 Office visit Cecilia LEE
--- OUTSIDE RECORDS SUMMARY | 2021-03-22 08:00 | XMS REPORT ---
Author Author Gisell Torres Organization [facility] Address [address] [place], [place] [address] Care Team Providers Care Medical Billing Coordinator Name Role Phone Crispin Torres PCP Allergies [...] mg) by oral route every 12 hours [place] 10-325 mg oral tablet take 1 tablet [...] %Est Avg Glucose 191.5 02/23/2020 9:13 AM [id number] NOT DETECTED 03/07/2020 10:48 AM CALCIUM IONIZED [...] Number [employer] Group Number Start Date [facility] [id number] [facility] [id number] 0 N/A [id number] , 2009 [facility] [id number] [facility] [id number] 0 N/A [facility] [id number] [facility] [id number] 0 N/A History of Encounters Visit Date Visit Type Provider 08/29/2020 Office visit Crispin Torres DO 03/08/2020 Surgery Crispin Torres DO 02/24/2020 Surgery Crispin Torres DO 02/15/2020 Office visit Crispin Torres DO 02/15/2020 [facility] Laura Hartley MD 09/24/2018 [facility] 09/23/2018 [facility] Laura Hartley MD 09/22/2018 [facility] Laura Hartley MD 08/22/2018 [facility] Laura Hartley MD 02/17/2018 Office visit Crispin Torres DO 01/21/2018 Office visit Crispin Torres DO 01/07/2018 Office visit Crispin Torres DO 10/10/2017 [facility] Laura Hartley MD 08/07/2017 Office visit Frederickdanie [...] Arzolauman DO 12/25/2015 Office visit Amara Campbell ASSEMBLER FOR PULLER OVER MACHINE 09/24/2015 [facility] Darnell Kaplan MD 09/21/2015 Hospital Crispin Bouman DO 08/15/[address] Frandy Croft MD 07/08/2015 [facility] Laura Hartley MD 07/07/2015 Office visit Amara Campbell ASSEMBLER FOR PULLER OVER MACHINE 06/16/2015 [facility] Crispin Bouman DO 06/03/2015 [facility] Crispin Bouman DO 06/02/2015 [facility] Crispin Bouman DO 05/31/2015 [facility] Crispin Bouman DO 05/26/2015 Surgery Crispin Bouman [...] DO 05/09/2015 Surgery Crispin Bouman DO 04/28/2015 [facility] Crispin Bouman DO 04/27/2015 [facility] Crispin Arzolauman DO 04/19/2015 Office visit Crispin Torres DO 03/31/2015 Office visit Crispin Torres DO 03/27/2015 Office visit Geraldo Haney DO 02/13/2015 [facility] Crispin Bouman DO 02/07/2015 Office visit Crispin Dariuszuman DO 01/26/2015 Office visit Geraldo Haney DO 01/13/2015 Office visit Juanita MILLER RN 01/02/2015 Office visit Juanita MILLER RN 11/29/2014 Office visit Geraldo Haney DO 07/08/2014 [facility] Darnell Kaplan MD 07/06/2014 [facility] Darnell Kaplan MD 07/05/2014 [facility] Laura Hartley MD 03/28/2014 [facility] Celestino Blanc MD 09/12/2013 [facility] Laura Hartley MD 11/05/2012 [facility] Crispin Torres 03/04/2012 [facility] Laura Hartley MD 12/25/2010 [facility] Laura Hartley MD 12/13/2010 Hospital Laura Hartley MD 03/09/2010 Voided Cecilia LEE 03/09/2010 [facility] Laura Hartley MD 01/26/2010 [facility] Laura Hartley MD 11/08/2009 Laboratory Abigail Gutierrez MD 09/21/2009 Office visit Cecilia LEE
[2021-03-22] MEDS ORDERED: LACTATED RINGERS 1,000 ML IV PRN (08:15)
[2021-03-22] MEDS ORDERED: LIDOCAINE/EPI 1%-1:200,000 (XYLOCAINE) 30 ML VIAL ONE (09:01)
[2021-03-22] MEDS ORDERED: LIDOCAINE PF 2% 5 ML (XYLOCAINE) VIAL ONE (09:04)
[2021-03-22] MEDS ORDERED: SEVOFLURANE (ULTANE) 15 ML INHAL SOLN ONE (09:04)
[2021-03-22] MEDS ORDERED: proPOfol 200 MG/20 ML (DIPRIVAN) VIAL IV ONE (09:04)
[2021-03-22] MEDS ORDERED: ONDANSETRON 4 MG/2 ML (SDV) Z0FRAN ONE (09:04)
[2021-03-22] MEDS ORDERED: ROCURONIUM 10 MG/ML 5 ML SYRINGE IV ONE (09:04)
[2021-03-22] MEDS ORDERED: MIDAZOLAM 2 MG/2 ML (VERSED) VIAL ONE (09:04)
[2021-03-22] MEDS ORDERED: fentaNYL INJ 100 MCG/2 ML AMP ONE (09:04)
--- NOTE | 2021-03-22 09:55 | Progress Note-Pre Operative ---
Pre-Operative Progress Note H&P Reviewed The H&P was reviewed, patient examined and no changes noted. Date Seen by Provider: Mar 22, 2021 Time Seen by Provider: 09:45 Date H&P Reviewed: Mar 22, 2021 Time H&P Reviewed: 09:45 Pre-Operative Diagnosis: Palatal Lesion MARÍA CHERRY MD Mar 22, 2021 09:55
--- NOTE | 2021-03-22 09:56 | Progress Note-Post Operative ---
Post-Operative Progess Note Surgeon (s)/Bed Rubber (s) Surgeon MARÍA CHERRY MD Bed Rubber n/a Pre-Operative Diagnosis Palatal Lesion Post-Operative Diagnosis same Post-Op Procedure Note Date of Procedure: Mar 22, 2021 Name of Procedure Performed: Excision of Soft Palate Lesion with Repair Description & Findings Description and Findings: n/a Anesthesia Type get Estimated Blood Loss minimal Packing none. Specimen(s) collected/removed soft palate lesion to pathology for review MARÍA CHERRY MD Mar 22, 2021 09:56
[2021-03-22] MEDS ORDERED: LIDOCAINE 2% VISCOUS 15 ML UDC PO PRN (10:00)
[2021-03-22] MEDS ORDERED: NS IV 1000 ML 1,000 ML IV SCH (10:00)
[2021-03-22] MEDS ORDERED: APAP 325 MG/10.15 ML LIQ (TYLENOL) UDC PO PRN (10:00)
[2021-03-22] MEDS ORDERED: DESFLURANE (SUPRANE) 15 ML INHAL SOLN ONE (10:10)
[2021-03-22] MEDS ORDERED: SUGAMMADEX 500 MG/5 ML VIAL (BRIDION) IV ONE (10:14)
[2021-03-22] MEDS ORDERED: HYDROcodone/APAP 5 MG/325 MG (LORTAB) TAB PO PRN (10:30)
[2021-03-22] MEDS ORDERED: fentaNYL INJ 100 MCG/2 ML AMP IVP ONE (10:45)
[2021-03-22] MEDS ORDERED: ONDANSETRON 4 MG/2 ML (SDV) Z0FRAN IVP PRN (10:45)
--- NOTE | 2021-03-22 11:20 | Anesthesia-General Post-Op ---
General Patient Condition Mental Status/LOC: Same as Preop Cardiovascular: Satisfactory Nausea/Vomiting: Absent Respiratory: Satisfactory Pain: Controlled Complications: Absent Post Op Complications Complications None Follow Up Care/Instructions Patient Instructions None needed. Anesthesia/Patient Condition Patient Condition Patient is doing well, no complaints, stable vital signs, no apparent adverse anesthesia problems. No complications reported per nursing. D/C home per [facility] Criteria: Yes STEPH MCCLOUD CRNA Mar 22, 2021 11:20
[2021-03-22] MEDS ORDERED: XYLOCAINE PO (11:52)
[2021-03-22] MEDS ORDERED: AMOX250S5 PO (11:53)
== END 2021-03-22 12:46 ==
LOC: SDC 07:57
PROVIDERS: ATTEND Otolaryngology Otolaryngology/Facial Plastic Surgery
DX: K13.70 Unspecified lesions of oral mucosa (principal); R22.9 Localized swelling, mass and lump, unspecified; I10 Essential (primary) hypertension; G47.33 Obstructive sleep apnea (adult) (pediatric); K21.9 Gastro-esophageal reflux disease without esophagitis; E11.9 Type 2 diabetes mellitus without complications; E78.5 Hyperlipidemia, unspecified; E03.9 Hypothyroidism, unspecified; E66.01 Morbid (severe) obesity due to excess calories; F32.A Depression, unspecified; Z68.41 Body mass index [BMI] 40.0-44.9, adult; Z79.890 Hormone replacement therapy; Z87.891 Personal history of nicotine dependence; Z79.899 Other long term (current) drug therapy; Z79.4 Long term (current) use of insulin
CPT/HCPCS: 82947; 87081